=== PATIENT | male | born 1985 | race Two or more races ===

== ENCOUNTER 2021-09-05 12:01 | Outpatient (CLI) | payer OTHER | END 2021-09-05 12:07 | disposition home or self-care (01) | LOC: LAB 12:01 | DX: F11.20 Opioid dependence, uncomplicated (principal); F14.20 Cocaine dependence, uncomplicated ==

== ENCOUNTER 2022-03-29 14:11 | Emergency (ER) | payer OTHER ==
[~2022-03-29] VITALS: Ht 162.6 cm; Wt 64.4 kg
[2022-03-29] MEDS ORDERED: NORFLEX100MG PO (18:22)
[2022-03-29] MEDS ORDERED: DICLOFENAC POTA50 MG PO (18:22)
== END 2022-03-29 19:08 | disposition home or self-care (01) ==
LOC: ER 14:11
DX: R07.9 Chest pain, unspecified (principal); F19.20 Other psychoactive substance dependence, uncomplicated; Z71.51 Drug abuse counseling and surveillance of drug abuser

== ENCOUNTER 2022-08-20 12:27 | Outpatient (CLI) | payer OTHER ==
[~2022-08-20 12:27] MED LIST: DICLOFENAC POTA50 MG PO; NORFLEX100MG PO
== END 2022-08-20 12:28 | disposition home or self-care (01) ==
LOC: LAB 12:27
DX: I10 Essential (primary) hypertension (principal); E03.9 Hypothyroidism, unspecified; E11.9 Type 2 diabetes mellitus without complications; Z20.2 Contact with and (suspected) exposure to infections with a predominantly sexual mode of transmission; F11.20 Opioid dependence, uncomplicated

== ENCOUNTER 2022-09-27 15:24 | Emergency (ER) | payer OTHER ==
[~2022-09-27] VITALS: Ht 162.6 cm; Wt 62.1 kg
== END 2022-09-28 06:23 | disposition home or self-care (01) ==
LOC: ER 15:24
DX: R10.13 Epigastric pain (principal); Z88.3 Allergy status to other anti-infective agents

== ENCOUNTER 2024-10-12 21:11 | Emergency (ER) | payer OTHER ==
[~2024-10-12] VITALS: Ht 162.6 cm; Wt 79.4 kg
== END 2024-10-12 22:38 | disposition home or self-care (01) ==
LOC: ER 21:14
DX: S00.93XA Contusion of unspecified part of head, initial encounter (principal); W18.39XA Other fall on same level, initial encounter; Y93.89 Activity, other specified; Y92.89 Other specified places as the place of occurrence of the external cause; Y99.9 Unspecified external cause status